=== PATIENT | male | born 1975 | race Caucasian/White ===

== ENCOUNTER 2018-05-20 12:59 | Day surgery (SDC) | payer OTHER ==
[~2018-05-20] VITALS: Ht 170.2 cm; Wt 80.0 kg
[~2018-05-20 12:59] MED LIST: ALBU90OI INH; Epipen Jr0.15 MG/0. IM; LOSA50 PO; MIRT15 PO; Nix Lice Treatm59 ML TOP; OXYACE7.5T PO; Omeprazole20 M1 PO; PENVK500 PO; SERT100 PO
--- NOTE | 2018-05-20 15:13 | NUR ---
05/20/18 1512 Iona Angulo TOOK REPORT FROM [facility].JST, PT SITTING UP IN BED WITH A [place]. FAMILY AT CHAIRSIDE. DISCUSSED DELAY WITH PT AND FAMILY, BOTH SAY THEY UNDERSTAND, GIVEN A GIFT CARD.
== END 2018-05-20 18:10 | disposition home or self-care (01) ==
LOC: ORSCSDS 12:59
PROVIDERS: Orthopaedic Surgery
PROC: 0LQ14ZZ Repair Right Shoulder Tendon, Percutaneous Endoscopic Approach (ICD-10-PCS; principal; 2018-05-20 13:50)
PROC: 0RNJ4ZZ Release Right Shoulder Joint, Percutaneous Endoscopic Approach (ICD-10-PCS; principal; 2018-05-20 13:50)
DX: M75.111 Incomplete rotator cuff tear or rupture of right shoulder, not specified as traumatic (principal); M75.21 Bicipital tendinitis, right shoulder; M75.51 Bursitis of right shoulder; I10 Essential (primary) hypertension; J45.909 Unspecified asthma, uncomplicated; K21.9 Gastro-esophageal reflux disease without esophagitis; Z87.891 Personal history of nicotine dependence; Z79.899 Other long term (current) drug therapy
CPT/HCPCS: C1713; J0171; J0690; J1100; J2250; J2405; J2704; J2710; J3010; J7120

== ENCOUNTER 2018-05-27 00:55 | Emergency (ER) | payer OTHER ==
[~2018-05-27] VITALS: Ht 170.2 cm; Wt 81.7 kg
== END 2018-05-27 01:20 | disposition home or self-care (01) ==
LOC: ER 00:55
DX: G89.18 Other acute postprocedural pain (principal); M25.511 Pain in right shoulder; Z91.030 Bee allergy status; Z79.899 Other long term (current) drug therapy; Z87.891 Personal history of nicotine dependence
CPT/HCPCS: 99283

== ENCOUNTER 2022-01-20 20:15 | Emergency (ER) | payer OTHER ==
[~2022-01-20] VITALS: Ht 167.6 cm; Wt 74.8 kg
[2022-01-20] MEDS ORDERED: Lisinopril2.5 MG PO (22:37)
[2022-01-20] MEDS ORDERED: MELO7.5 PO (22:37)
[2022-01-20] MEDS ORDERED: PANTOPRAZOLE SO40 M2 PO (22:38)
[2022-01-20] MEDS ORDERED: Percocet 5-3251 EACH PO (23:58)
== END 2022-01-21 00:13 | disposition home or self-care (01) ==
LOC: ER 20:15
DX: N43.3 Hydrocele, unspecified (principal); I10 Essential (primary) hypertension; Z91.038 Other insect allergy status; Z79.899 Other long term (current) drug therapy; Z87.891 Personal history of nicotine dependence
CPT/HCPCS: 76870; A9270

== ENCOUNTER 2022-03-05 01:13 | Emergency (ER) | payer OTHER ==
[~2022-03-05] VITALS: Ht 167.6 cm; Wt 77.6 kg
[~2022-03-05 01:13] MED LIST changes: +Lisinopril2.5 MG PO; +MELO7.5 PO; +PANTOPRAZOLE SO40 M2 PO; +Percocet 5-3251 EACH PO
[2022-03-05 04:48] LABS: Source, Urine Clean Catch
[2022-03-05 05:14] LABS: Bilirubin, Urine Neg (Neg); Blood, Urine 3+ (Neg); Glucose Qualitative, Urine Neg (Neg); Ketones, Urine Neg (Neg); Leukocyte Esterase, Urine Neg (Neg); Nitrite, Urine Neg (Neg); Protein, Urine 1+ (Neg); Urobilinogen, Urine NORM (Normal)
[2022-03-05 05:21] LABS: Appearance, Urine Hazy (Clear); Color, Urine Yellow (P-Yellow)
[2022-03-05 05:22] LABS: Bacteria Rare /hpf; Calcium Oxalate Crystals Few /hpf; Squamous Epithelial Cells Rare /hpf (Few); White Blood Cells, Urine 0-2 /hpf (0-5)
== END 2022-03-05 05:32 | disposition home or self-care (01) ==
LOC: ER 01:13
PROVIDERS: Student in an Organized Health Care Education/Training Program
DX: N50.812 Left testicular pain (principal); I86.1 Scrotal varices; N43.3 Hydrocele, unspecified; R31.29 Other microscopic hematuria; I10 Essential (primary) hypertension; Z91.030 Bee allergy status; Z79.899 Other long term (current) drug therapy; Z87.891 Personal history of nicotine dependence
CPT/HCPCS: 76870; 81001; J1885

== ENCOUNTER 2022-04-01 23:10 | Emergency (ER) | payer OTHER ==
[~2022-04-01] VITALS: Ht 167.6 cm; Wt 81.7 kg
[2022-04-01] MEDS ORDERED: Percocet 5-3251 EACH PO (23:37)
== END 2022-04-01 23:55 | disposition home or self-care (01) ==
LOC: ER 23:10
DX: I86.1 Scrotal varices (principal); N43.3 Hydrocele, unspecified; I10 Essential (primary) hypertension; Z87.891 Personal history of nicotine dependence; Z91.038 Other insect allergy status; Z79.899 Other long term (current) drug therapy
CPT/HCPCS: A9270

== ENCOUNTER 2022-04-12 05:38 | Emergency (ER) | payer OTHER ==
[~2022-04-12] VITALS: Ht 167.6 cm; Wt 81.7 kg
[2022-04-12] MEDS ORDERED: Percocet 5-3251 EACH PO (07:55)
[2022-04-12] MEDS ORDERED: LEVFLO500 PO (07:55)
== END 2022-04-12 08:32 | disposition home or self-care (01) ==
LOC: ER 05:38
DX: N45.1 Epididymitis (principal); Z91.030 Bee allergy status; Z79.899 Other long term (current) drug therapy; I10 Essential (primary) hypertension
CPT/HCPCS: 76870; 99284-25; A9270

== ENCOUNTER 2022-04-15 23:00 | Emergency (ER) | payer OTHER ==
[~2022-04-15] VITALS: Ht 167.6 cm; Wt 81.7 kg
[~2022-04-15 23:00] MED LIST changes: +LEVFLO500 PO
[2022-04-15] MEDS ORDERED: OXYC5 PO ×2 (23:25→23:28)
== END 2022-04-15 23:34 | disposition home or self-care (01) ==
LOC: ER 23:00
DX: N43.3 Hydrocele, unspecified (principal); N45.1 Epididymitis; I10 Essential (primary) hypertension
CPT/HCPCS: 96372; 99283-25; J1885

== ENCOUNTER 2022-11-20 10:40 | Emergency (ER) | payer OTHER ==
[~2022-11-20] VITALS: Ht 167.6 cm; Wt 74.8 kg
[~2022-11-20 10:40] MED LIST changes: +OXYC5 PO
[2022-11-20 11:26] LABS: BASOPHILS ABSOLUTE AUTO 0.05 K/mm3 (0.00-0.23); BASOPHILS PERCENT AUTO 1 % (0-2); EOSINOPHILS PERCENT AUTO 1 % (0-6); Hematocrit 48.3 % (37.0-53.0); Hemoglobin 16.1 g/dL (13.5-17.5); IMMATURE GRAN ABSOLUTE AUTO 0.02 K/mm3 (0.00-0.10); IMMATURE GRAN PERCENT AUTO 0 % (0-1); LYMPHOCYTES ABSOLUTE AUTO 1.93 K/mm3 (0.84-5.20); LYMPHOCYTES PERCENT AUTO 27 % (21-46); MONOCYTES ABSOLUTE AUTO 0.48 K/mm3 (0.16-1.47); MONOCYTES PERCENT AUTO 7 % (4-13); Mean Corpuscular HGB 28.2 pg (26.0-34.0); Mean Corpuscular HGB Conc 33.3 g/dL (31.5-36.5); Mean Corpuscular Volume 85 fL (80-100); Mean Platelet Volume 9.9 fL (9.1-12.4); NEUTROPHILS ABSOLUTE AUTO 4.58 K/mm3 (1.96-9.15); NEUTROPHILS PERCENT AUTO 64 % (41-73); Platelet Count 318 K/mm3 (150-400); RDW Coefficient Variation 13.3 % (11.7-14.2); RDW Standard Deviation 41.1 fL (35.1-46.3); White Blood Cell Count 7.16 K/mm3 (4.00-11.30)
[2022-11-20 11:46] LABS: Albumin/Globulin Ratio 1.1 (0.8-1.8); Bilirubin, Total 0.2 mg/dL (0.1-1.0); Bun/Creatinine Ratio 9.1 (12.0-20.0); Calcium, Blood 9.1 mg/dL (8.5-10.1); Creatinine, Blood 1.1 mg/dL (0.60-1.20); Globulin, Blood 3.8 g/dL (2.2-4.0); Potassium, Blood 4.6 mmol/L (3.5-5.5); Total Protein, Blood 7.8 g/dL (6.4-8.2)
[2022-11-20 14:36] LABS: Source, Urine Voided
[2022-11-20 14:50] LABS: Appearance, Urine Clear (Clear); Bilirubin, Urine Neg (Neg); Blood, Urine 1+ (Neg); Color, Urine Yellow (P-Yellow); Glucose Qualitative, Urine Neg (Neg); Ketones, Urine Neg (Neg); Leukocyte Esterase, Urine Neg (Neg); Nitrite, Urine Neg (Neg); Protein, Urine 1+ (Neg); Urobilinogen, Urine NORM (Normal)
[2022-11-20 15:16] LABS: Bacteria Few /hpf; Squamous Epithelial Cells Rare /hpf (Few); White Blood Cells, Urine 0-2 /hpf (0-5)
[2022-11-20] MEDS ORDERED: OXAYDO5 M1 PO (15:25)
[2022-11-20] MEDS ORDERED: TAMS.4ER PO (15:25)
[2022-11-20] MEDS ORDERED: ONDA4ODT MM (15:25)
[2022-11-20] MEDS ORDERED: IBUP800 PO (15:25)
[2022-11-20 16:17] VITALS: BP 179/98
[2022-11-20] MEDS ORDERED: CIPR500 PO (19:56)
== END 2022-11-20 16:12 | disposition home or self-care (01) ==
LOC: ER 10:40
PROVIDERS: Emergency Medicine; Physician Assistant
DX: N13.2 Hydronephrosis with renal and ureteral calculous obstruction (principal); R82.71 Bacteriuria; I10 Essential (primary) hypertension; K21.9 Gastro-esophageal reflux disease without esophagitis; Z91.030 Bee allergy status
CPT/HCPCS: 74177; 80053; 81001; 83690; 85025; 96361; 96374-59; 96375; 99284-25; A9270; J0696; J1885; J2405; J7030; Q9967